=== PATIENT | female | born 1980 | race Caucasian/White ===

== ENCOUNTER 2016-04-22 09:06 | Inpatient (IN) | payer BC ==
[2016-04-22 10:19] LABS: Basophils % (A) 0 %; CH 32.1; CHCM 35.5; Eosinophils # (A) 0.1 k/uL (0-0.7); Eosinophils % (A) 1 %; HCT 41.4 % (34.0-46.0); HDW 2.75; HGB 14.1 gm/dL (11.4-16.0); Luc # (Auto) 0.19; Luc % (Auto) 2; Lymphocytes # (A) 1.1 k/uL (1.0-4.8); Lymphocytes % (A) 12 %; MCV 91.1 fL (80.0-100.0); Monocytes # (A) 0.4 k/uL (0-1.0); Monocytes % (A) 4 %; Neutrophils # (A) 7.7 k/uL (1.3-7.7); Neutrophils % (A) 82 %; RBC 4.55 m/uL (3.80-5.40); WBC 9.4 k/uL (3.8-10.6); WBC (Perox) 9.94
[2016-04-22 10:49] LABS: ALT 29 U/L (9-52); AST 21 U/L (14-36); LDH 515 U/L (313-618); Non-African American GFR(MDRD) >60 (>60 ml/min/1.73 sqM)
[2016-04-22] MEDS ORDERED: METHYLERGONOVINE 0.2 MG/ML 1 ML AMP IM PRN (11:08)
[2016-04-22] MEDS ORDERED: CARBOPROST TROMETHAMINE 250 MCG/ML 1 ML AMP IM PRN (11:08)
[2016-04-22] MEDS ORDERED: LIDOCAINE 1% (PF) 10 MG/ML (30 ML SDV) SQ PRN (11:08)
[2016-04-22] MEDS ORDERED: OXYTOCIN 10 UNIT/ML 1 ML VIAL IM PRN (11:08)
[2016-04-22] MEDS ORDERED: TERBUTALINE 1 MG/ML VIAL SQ PRN (11:08)
[2016-04-22 11:17] LABS: Appearance,Urine Clear (Clear); Bacteria,Urine Occasional /hpf; Bilirubin,Urine Negative (Negative); Glucose,Urine (UA) Negative (Negative); Ketones,Urine Negative (Negative); Leukocyte Esterase,Urine Negative (Negative); Nitrite,Urine Negative (Negative); PH, Urine 7.5 (5.0-8.0); Particle Count 874; Protein,Urine Negative (Negative); Specific Gravity,Urine 1.005 (1.001-1.035); Squamous Epithelial Cell,Urine <1 /hpf (0-4); UA Billing (MACRO vs. MICRO) MICRO; Urobilinogen,Urine <2.0 mg/dL (<2.0); WBC,Urine 1 /hpf (0-5)
[2016-04-22 11:23] VITALS: BMI 29.1
[2016-04-22] MEDS: LACTATED RINGERS 1,000 ML IV SCH (11:42)
[2016-04-22] MEDS ORDERED: SODIUM CHLORIDE 0.9% 100 ML BAG ONE (11:50)
[2016-04-22] MEDS ORDERED: BUPIVACAINE (PF) 0.25% 30 ML VIAL ONE (11:50)
[2016-04-22] MEDS ORDERED: fentaNYL (PF) 50 MCG/ML 5 ML AMP ONE (11:50)
[2016-04-22] MEDS ORDERED: BUPIVACAINE (PF) 0.25% 25 ML, fentaNYL (PF) 200 MCG in SODIUM CHLORIDE 0.9% 71 ML EPIDURAL ONE (12:04)
[2016-04-22] MEDS: OXYTOCIN 30 UNITS/500 ML NS 30 UNIT in SALINE 1 500ML.BAG IV SCH (13:55)
[2016-04-22] MEDS ORDERED: diphenhydrAMINE 50 MG CAP PO PRN (14:31)
[2016-04-22] MEDS ORDERED: ZOLPIDEM 5 MG TAB PO PRN (14:31)
[2016-04-22] MEDS ORDERED: SIMETHICONE 80 MG CHEWABLE PO PRN (14:31)
[2016-04-22] MEDS ORDERED: LANOLIN CREAM 5 GM TUBE TOPICAL PRN (14:31)
[2016-04-22] MEDS ORDERED: HYDROCORTISONE 2.5% RECTAL CREAM 30 GM TUBE RECTAL PRN (14:31)
[2016-04-22] MEDS ORDERED: WITCH HAZEL 1 EACH MED..PAD TOPICAL PRN (14:31)
[2016-04-22] MEDS ORDERED: Acetaminophen-Codeine 300-30mg TAB PO PRN ×2 (14:31)
[2016-04-22] MEDS ORDERED: ACETAMINOPHEN TAB 325 MG TAB PO PRN (14:31)
[2016-04-22] MEDS ORDERED: diphenhydrAMINE 50 MG/ML 1 ML VIAL IVP PRN ×2 (14:31)
[2016-04-22] MEDS ORDERED: BENZOCAINE/MENTHOL SPRAY 1 GM/SPRAY AEROSOL TOPICAL PRN (14:31)
[2016-04-22] MEDS ORDERED: diphenhydrAMINE 25 MG CAP PO PRN (14:31)
[2016-04-22] MEDS: IBUPROFEN 600 MG TAB PO PRN ×2 (15:50→21:34)
--- NOTE | 2016-04-22 16:50 | P.HPOB ---
History of Present Illness H&P Date: 04/22/16 Chief Complaint: Intrauterine at 38 weeks: Active labor Rosina is a 35-year-old 4 para 1 at 38 weeks gestation arise in active labor making cervical change. Her course generally speaking was unremarkable and she is feeling well at this time. Pertinent labs do include O + blood type Rh antibody was negative, rubella immune, hepatitis be surface antigen and RPR were both negative. Group B strep was also negative. Her vital signs are stable and she is afebrile. Initial blood pressure was noted be elevated but she was nettie this likely is the cause. However we did do pre-ecclamptic labs and they were normal. Physical exam heart regular, lungs clear, extremities without pain. Abdomen is soft uterus is noted to be nettie and gravid. heart tones in the 140s and are reactive. Past Medical History Past Medical History: Osteoarthritis (OA) Additional Past Medical History / Comment(s): IBS, rectal bldg-hemorrhoids, disc problems in back, bulging discs in neck, DJD History of Any Multi-Drug Resistant Organisms: None Reported Additional Past Surgical History / Comment(s): D & C, colonoscopies, wisdom teeth 2000 Past Anesthesia/Blood Transfusion Reactions: No Reported Reaction Past Psychological History: No Psychological Hx Reported Smoking Status: Never smoker Past Alcohol Use History: None Reported, Occasional Past Drug Use History: None Reported - Past Family History Father Family Medical History: Hypertension Medications and Allergies Home Medications Medication Instructions Recorded Confirmed Type Docusate [Colace] 100 mg PO DAILY PRN 04/22/16 04/22/16 History Allergies Allergy/AdvReac Type Severity Reaction Status Date / Time amoxicillin [Amoxicillin] Allergy Rash/Hives Verified 04/12/16 04:17 amoxicillin trihydrate Allergy Rash/Hives Verified 04/12/16 04:17 [From Trimox] cephalexin monohydrate Allergy Rash/Hives Verified 04/12/16 04:17 [From Keflex] Penicillins Allergy Rash/Hives Verified 04/12/16 04:17 sulfamethoxazole Allergy Rash/Hives Verified 04/12/16 04:17 [From Bactrim] trimethoprim [From Bactrim] Allergy Rash/Hives Verified 04/12/16 04:17 Exam Osteopathic Statement: *. No significant issues noted on an osteopathic structural exam other than those noted in the History and Physical/Consult. - Vital Signs Vital signs: Vital Signs Temp Pulse Resp BP Pulse Ox 04/22/16 15:15 96.6 F L 84 16 117/79 04/22/16 15:00 83 18 119/75 97 04/22/16 14:46 83 18 119/77 97 04/22/16 14:30 91 18 120/81 98 04/22/16 14:27 84 18 113/72 96 04/22/16 14:19 129 H 18 106/46 04/22/16 14:16 141 H 18 95/44 04/22/16 14:01 91 18 134/77 04/22/16 09:20 98.3 F 88 18 136/97 97 Intake and Output 04/22/16 04/22/16 04/22/16 06:59 14:59 22:59 Intake Total 800 Output Total 200 Balance 800 -200 Intake: IV 800 Output: Estimated Blood Loss 200 Other: # Voids 1 Weight 79.379 kg Patient Weight 04/23/16 06:59 Weight 79.379 kg - OBG Physical Exam Breast: both: normal (no masses) Abdomen: bowel sounds normal, no diffuse tenderness, no bruit present, no guarding noted, no hepatomegaly, no splenomegaly, no mass Vulva: both: normal Vagina: normal moisture, no discharge Cervix: no lesion, no discharge Uterus: normal size, normal contour Adnexa: both: normal Anus/Rectum: normal perianal skin, no rectal mass, no hemorrhoids, heme negative Results Result Diagrams: 04/22/16 10:05 04/22/16 10:05 Abnormal Lab Results - Last 24 Hours (Table) 04/22/16 Range/Units 10:41 Urine Blood Trace H (Negative) Urine Bacteria Occasional H (None) /hpf
--- NOTE | 2016-04-22 16:52 | P.PROBDLV ---
Vaginal Delivery Note - . Vaginal Delivery Note: Rosina progressed to complete and pushing with spontaneous vaginal delivery of a viable male over a second-degree midline laceration. Following deliver the head a nuchal cord 1 was easily reduced and anterior and posterior shoulders were delivered without difficulty following gentle upward and downward traction. Once baby was fully delivered mouth nares were bulb suctioned and baby was placed on mother's abdomen where the umbilical cord was clamped and cut in usual fashion. Nursery personnel was present to assume care. Placenta was then delivered intact and Pitocin was added to the IV. Secondary laceration was then repaired with 3-0 Vicryl following 1% Xylocaine for analgesia. Both mother and baby are stable following delivery.
[2016-04-22] MEDS: SENNOSIDES-DOCUSATE SODIUM 1 EACH TAB PO SCH (19:54)
[2016-04-23 01:10] VITALS: BP 111/71; PULSE 89; TEMP 98.4
[2016-04-23] MEDS: OXYTOCIN 30 UNITS/500 ML NS 30 UNIT in SALINE 1 500ML.BAG IV SCH ×2 (01:28→01:29)
[2016-04-23] MEDS: LACTATED RINGERS 1,000 ML IV SCH (01:31)
[2016-04-23] MEDS: IBUPROFEN 600 MG TAB PO PRN ×2 (03:51→09:57)
[2016-04-23 08:09] LABS: Basophils % (A) 0 %; CH 32.1; CHCM 35.2; Eosinophils % (A) 0 %; HCT 35.2 % (34.0-46.0); HDW 2.72; HGB 12.1 gm/dL (11.4-16.0); Luc # (Auto) 0.11; Luc % (Auto) 1; Lymphocytes # (A) 1.1 k/uL (1.0-4.8); Lymphocytes % (A) 14 %; MCH 31.5 pg (25.0-35.0); MCHC 34.4 g/dL (31.0-37.0); MCV 91.6 fL (80.0-100.0); Mean Platelet Volume 9.8; Monocytes # (A) 0.3 k/uL (0-1.0); Monocytes % (A) 4 %; Neutrophils # (A) 6.7 k/uL (1.3-7.7); Neutrophils % (A) 80 %; RBC 3.84 m/uL (3.80-5.40); RDW 13.1 % (11.5-15.5); WBC 8.3 k/uL (3.8-10.6); WBC (Perox) 8.71
[2016-04-23] MEDS: SENNOSIDES-DOCUSATE SODIUM 1 EACH TAB PO SCH (08:26)
--- NOTE | 2016-04-23 08:45 | P.DS ---
Providers Date of admission: 04/22/16 11:06 Expected date of discharge: 04/23/16 Attending physician: Kristofer Barnes Primary care physician: Kristofer Barnes Hospital Course: Rosina is doing very well day 1. She is requesting discharge home today. Her vital signs are stable and afebrile. Heart is regular, lungs are clear abdomen is soft. Uterus is firm below the umbilicus lochia is reported be light. Extremities are without pain. Assessment day 1. Plan discharged home follow up with me in 6 weeks. Discharge instructions were thoroughly reviewed and all questions are answered for her prior to her discharge. Requests no prescription for pain medication. Patient Condition at Discharge: Good Plan - Discharge Summary Discharge Medication List Docusate [Colace] 100 mg PO DAILY PRN 04/22/16 [History] Follow up Appointment(s)/Referral(s): Kristofer Barnes DO [Primary Care Provider] - 6 Weeks Activity/Diet/Wound Care/Special Instructions: No heavy lifting, limit stairs and driving, pelvic rest. If any high temperatures, heavy bleeding, or severe pain call my office Discharge Disposition: HOME SELF-CARE
[2016-04-23 10:41] VITALS: RESP 20
== END 2016-04-23 15:45 | disposition home or self-care (01) | DRG 775 ==
LOC: FBPOP 09:06 → 4FBP 11:06
PROVIDERS: ADMIT Obstetrics & Gynecology; ATTEND Obstetrics & Gynecology
PROC: 10E0XZZ Delivery of Products of Conception, External Approach (ICD-10-PCS; principal; 2016-04-22)
PROC: 0KQM0ZZ Repair Perineum Muscle, Open Approach (ICD-10-PCS; 2016-04-22)
DX: O69.81X0 Labor and delivery complicated by cord around neck, without compression, not applicable or unspecified (principal); M50.20 Other cervical disc displacement, unspecified cervical region; O99.89 Other specified diseases and conditions complicating pregnancy, childbirth and the puerperium; O70.1 Second degree perineal laceration during delivery; O99.62 Diseases of the digestive system complicating childbirth; M19.90 Unspecified osteoarthritis, unspecified site; K58.9 Irritable bowel syndrome, unspecified; K64.9 Unspecified hemorrhoids; Z3A.38 38 weeks gestation of pregnancy; Z37.0 Single live birth; Z88.1 Allergy status to other antibiotic agents; Z88.0 Allergy status to penicillin; Z88.2 Allergy status to sulfonamides; Z82.49 Family history of ischemic heart disease and other diseases of the circulatory system
CPT/HCPCS: 59025; 81001; 82565; 83615; 84450; 84460; 84550; 85025; 88307; 99213

== ENCOUNTER → 2018-10-08 | Outpatient (CLI) | payer BC | END | disposition home or self-care (01) | LOC: LABWHC1 08:39 | PROVIDERS: ATTEND Obstetrics & Gynecology | DX: N91.2 Amenorrhea, unspecified (principal) | CPT/HCPCS: 36415; 84702 ==